=== PATIENT | male | born 1965 | race Caucasian/White ===

== ENCOUNTER 2021-05-24 16:56 | Observation (INO) | payer OTHER ==
[~2021-05-24] VITALS: Ht 172.7 cm; Wt 66.7 kg
[2021-05-24 17:56] LABS: HEMOGLOBIN 15.9 gm/dl (14.0-17.5); RED BLOOD COUNT 4.47 M/UL (4.20-5.50); WHITE BLOOD COUNT 11.4 K/UL (4.5-11.0)
[2021-05-24 18:25] LABS: BUN/CREATININE RATIO 20 (0-10)
[2021-05-24] MEDS ORDERED: HYDROCODON-ACE1 EAC6 PO (22:59)
[2021-05-24] MEDS ORDERED: XANAX 0.25 MG0.25 MG PO (22:59)
[2021-05-24] MEDS ORDERED: PRAVASTATIN SOD20 MG PO (23:00)
[2021-05-24] MEDS ORDERED: LISINOPRIL10 MG PO (23:00)
[2021-05-24] MEDS ORDERED: ZOLPIDEM TARTRA10 MG PO (23:00)
[2021-05-24] MEDS ORDERED: NOVOLIN 70100 UNIT/1 SC (23:01)
[2021-05-25 04:13] LABS: WHITE BLOOD COUNT 9.6 K/UL (4.5-11.0)
[2021-05-25 04:20] LABS: HEMOGLOBIN 13.3 gm/dl (14.0-17.5); RED BLOOD COUNT 3.82 M/UL (4.20-5.50)
[2021-05-25 04:42] LABS: BUN/CREATININE RATIO 21 (0-10)
[2021-05-26 05:33] LABS: BUN/CREATININE RATIO 11 (0-10)
[2021-05-26 05:47] LABS: HEMOGLOBIN 13.1 gm/dl (14.0-17.5); RED BLOOD COUNT 3.78 M/UL (4.20-5.50); WHITE BLOOD COUNT 7.9 K/UL (4.5-11.0)
[2021-05-26] MEDS ORDERED: ELIQUIS5 M1 PO (09:44)
== END 2021-05-26 12:45 | disposition home or self-care (01) ==
LOC: ER1 16:56 → M/S 20:54 → CDU 20:54 → M/S 22:43
PROVIDERS: Internal Medicine; Nurse Practitioner; Physician Assistant Medical; ADMIT Internal Medicine
DX: I82.412 Acute embolism and thrombosis of left femoral vein (principal); I82.432 Acute embolism and thrombosis of left popliteal vein; I82.442 Acute embolism and thrombosis of left tibial vein; I82.452 Acute embolism and thrombosis of left peroneal vein; I26.99 Other pulmonary embolism without acute cor pulmonale; E87.1 Hypo-osmolality and hyponatremia; E10.9 Type 1 diabetes mellitus without complications; M79.605 Pain in left leg; E78.5 Hyperlipidemia, unspecified; I10 Essential (primary) hypertension; Z88.2 Allergy status to sulfonamides; Z72.0 Tobacco use; Z79.01 Long term (current) use of anticoagulants; F41.9 Anxiety disorder, unspecified; Z79.4 Long term (current) use of insulin
CPT/HCPCS: 36415; 71045; 80048; 80053; 82550; 82553; 82962; 83874; 84484; 85025; 85027; 85379; 85610; 85730; 93005; 93971; G0378; J1644; J7030; Q9967